=== PATIENT | female | born 1995 | race African-American/Black ===

== ENCOUNTER 2019-12-25 19:12 | Emergency (ER) | payer SELFPAY ==
[~2019-12-25] VITALS: Ht 167.6 cm; Wt 55.0 kg
[2019-12-25] MEDS ORDERED: ONDANSETRON 4MG ODT PO ONE (20:15)
[2019-12-25] MEDS ORDERED: HYDROCODONE/ACETAMINOPHEN 5/325MG TABLET PO ONE (20:15)
[2019-12-25 20:32] VITALS: BP 148/83
== END 2019-12-25 21:31 | disposition home or self-care (01) ==
LOC: ER 19:12
DX: S06.899A Other specified intracranial injury with loss of consciousness of unspecified duration, initial encounter (principal); R07.81 Pleurodynia; Z88.0 Allergy status to penicillin; V43.62XA Car passenger injured in collision with other type car in traffic accident, initial encounter; Y93.89 Activity, other specified; Y92.488 Other paved roadways as the place of occurrence of the external cause
CPT/HCPCS: 70450; 71250; 93005; 99285; Q0162